=== PATIENT | female | born 1970 | race Caucasian/White ===

== ENCOUNTER 2017-02-25 18:17 | Emergency (ER) | payer MEDICARE, MEDICAID ==
[~2017-02-25] VITALS: Ht 167.6 cm; Wt 89.7 kg
[~2017-02-25 18:17] MED LIST: AMIT50TA PO; BUPR1FIL3 SL; CEFT2FRO2 IV; DICL75TA2 PO; ESTR1TAB15 PO; GABA100C8 PO; GABA300C10 PO; LEVO40CA PO; LEVO75TA5 PO; METO10TA2 PO; METR500T PO; MILN1TAB SL; MILN50TA PO; NAPR500T3 PO; OMEP40CA6 PO; PANT40TA5 PO; POLY17PO5 PO; PROM25TA10 PO; QUET200T PO; QUET400T6 PO; ROSU20TA PO; SENN1TAB5 PO; TAMS0.4C2 PO; ZOLP10TA5 PO
[2017-02-25 18:19] VITALS: BP 144/89
[2017-02-25] MEDS ORDERED: LIDOCAINE 1%, 20ML ONE (19:36)
[2017-02-25] MEDS ORDERED: LIDOCAINE 1%, 20ML SQ ONE (20:00)
[2017-02-25] MEDS ORDERED: BACITRACIN ZINC OINT 500U/GM, 0.9 GM ONE (21:12)
== END 2017-02-25 21:25 | disposition home or self-care (01) ==
LOC: ED 21:19
DX: L60.0 Ingrowing nail (principal); E11.9 Type 2 diabetes mellitus without complications; E78.00 Pure hypercholesterolemia, unspecified; F19.10 Other psychoactive substance abuse, uncomplicated
CPT/HCPCS: 11750

== ENCOUNTER 2017-04-14 15:53 | Emergency (ER) | payer MEDICARE, MEDICAID ==
[~2017-04-14] VITALS: Ht 167.6 cm; Wt 88.6 kg
[2017-04-14] MEDS ORDERED: SODIUM CHLORIDE 0.9% 1,000 ML IV ONE (16:33)
[2017-04-14] MEDS ORDERED: SODIUM CHLORIDE 0.9% 1,000ML IVBOLUS ONE (17:00)
[2017-04-14 17:06] LABS: BLOOD UREA NITROGEN 7 mg/dL (7-18)
[2017-04-14 17:09] LABS: ASPARTATE AMINO TRANSFERASE 79 U/L (15-37)
[2017-04-14 19:28] VITALS: BP 133/81
== END 2017-04-14 19:31 | disposition home or self-care (01) ==
LOC: ED 19:00
DX: L03.032 Cellulitis of left toe (principal); R10.9 Unspecified abdominal pain; E11.9 Type 2 diabetes mellitus without complications; E78.00 Pure hypercholesterolemia, unspecified; Z90.49 Acquired absence of other specified parts of digestive tract; Z90.710 Acquired absence of both cervix and uterus
CPT/HCPCS: 36415; 74022; 80053; 81003; 83690; 85025; 99285

== ENCOUNTER 2017-06-06 18:53 | Emergency (ER) | payer MEDICARE, MEDICAID ==
[~2017-06-06] VITALS: Ht 167.6 cm; Wt 90.9 kg
[~2017-06-06 18:53] MED LIST changes: +GABA-826 PO; -GABA100C8 PO
[2017-06-06] MEDS ORDERED: SODIUM CHLORIDE 0.9% 1,000 ML IV ONE (19:15)
[2017-06-06] MEDS ORDERED: ONDANSETRON 2MG/ML, 2ML IVPush ONE (19:30)
[2017-06-06] MEDS ORDERED: SODIUM CHLORIDE FLUSH 10ML SYR IVF ONE (19:30)
[2017-06-06] MEDS ORDERED: HYDROmorphone 1 MG/ML, 1ML IVPush PRN (19:30)
[2017-06-06 19:49] LABS: BLOOD UREA NITROGEN 7 mg/dL (7-18)
[2017-06-06] MEDS ORDERED: HYDROmorphone 1 MG/ML, 1ML ONE (19:49)
[2017-06-06] MEDS ORDERED: ONDANSETRON 2MG/ML, 2ML ONE (19:49)
[2017-06-06 19:52] LABS: ASPARTATE AMINO TRANSFERASE 99 U/L (15-37)
[2017-06-06] MEDS ORDERED: VARE1TAB21 PO (20:22)
[2017-06-06 21:28] VITALS: BP 117/65
[2017-06-07] MEDS ORDERED: OMNIPAQUE 350 MG/ML, 100ML BOTTLE ONE (05:05)
== END 2017-06-06 21:26 | disposition home or self-care (01) ==
LOC: ED 21:00
DX: R10.32 Left lower quadrant pain (principal); Z90.49 Acquired absence of other specified parts of digestive tract; Z90.710 Acquired absence of both cervix and uterus; Z87.891 Personal history of nicotine dependence
CPT/HCPCS: 36415; 74177; 80053; 81003; 85025; 96361; 96374; 96375; 99285; J1170; J2405; J7030; Q9967

== ENCOUNTER 2017-07-29 06:53 | Emergency (ER) | payer MEDICARE, MEDICAID ==
[~2017-07-29] VITALS: Ht 167.6 cm; Wt 87.0 kg
[~2017-07-29 06:53] MED LIST changes: +SENN-52 PO; -SENN1TAB5 PO; +VARE1TAB21 PO
[2017-07-29 06:55] VITALS: BP 136/85
[2017-07-29] MEDS ORDERED: ONDANSETRON ODT 4 MG ONE (07:28)
[2017-07-29] MEDS ORDERED: HYDROmorphone 1 MG/ML, 1ML ONE (07:28)
[2017-07-29] MEDS ORDERED: HYDROmorphone 1 MG/ML, 1ML IM ONE (07:30)
[2017-07-29] MEDS ORDERED: ONDANSETRON ODT 4 MG PO ONE (07:30)
[2017-07-29] MEDS ORDERED: GABA600T2 PO (07:32)
[2017-07-29] MEDS ORDERED: METO25TA35 PO (07:32)
== END 2017-07-29 08:56 | disposition home or self-care (01) ==
LOC: ED 08:30
DX: M54.41 Lumbago with sciatica, right side (principal); I10 Essential (primary) hypertension; E11.9 Type 2 diabetes mellitus without complications; E78.00 Pure hypercholesterolemia, unspecified; Z90.49 Acquired absence of other specified parts of digestive tract; Z90.710 Acquired absence of both cervix and uterus; Z87.891 Personal history of nicotine dependence
CPT/HCPCS: 81003; 96372; 99283; J1170; Q0162

== ENCOUNTER 2017-09-12 21:34 | Emergency (ER) | payer MEDICARE, MEDICAID ==
[~2017-09-12] VITALS: Ht 167.6 cm; Wt 87.6 kg
[~2017-09-12 21:34] MED LIST changes: +GABA600T2 PO; +METO25TA35 PO
[2017-09-12 21:36] VITALS: BP 158/103
[2017-09-12] MEDS ORDERED: HYDROmorphone 1 MG/ML, 1ML ONE (22:25)
[2017-09-12] MEDS ORDERED: HYDROmorphone 1 MG/ML, 1ML IM ONE (22:30)
[2017-09-12] MEDS ORDERED: CLINDAMYCIN 150 MG/ML, 6ML IM ONE (22:30)
== END 2017-09-12 23:10 | disposition home or self-care (01) ==
LOC: ED 22:27
DX: K04.7 Periapical abscess without sinus (principal); I10 Essential (primary) hypertension; E78.00 Pure hypercholesterolemia, unspecified; E11.43 Type 2 diabetes mellitus with diabetic autonomic (poly)neuropathy; F41.1 Generalized anxiety disorder; Z88.5 Allergy status to narcotic agent; Z88.6 Allergy status to analgesic agent; Z88.0 Allergy status to penicillin
CPT/HCPCS: 96372; 99284; J1170

== ENCOUNTER → 2017-10-26 | Outpatient (CLI) | payer OTHER, MEDICAID ==
[~2017-10-26] MED LIST changes: -NAPR500T3 PO; +NAPR500T4 PO
== END | disposition home or self-care (01) ==
LOC: RAD 13:06
PROVIDERS: ATTEND Physician Assistant Medical
DX: K31.84 Gastroparesis (principal); F41.9 Anxiety disorder, unspecified; R13.19 Other dysphagia; M79.7 Fibromyalgia; K21.9 Gastro-esophageal reflux disease without esophagitis; R13.12 Dysphagia, oropharyngeal phase; R11.0 Nausea; K59.00 Constipation, unspecified; R10.32 Left lower quadrant pain; R10.31 Right lower quadrant pain; R14.0 Abdominal distension (gaseous); R12 Heartburn
CPT/HCPCS: 74220

== ENCOUNTER 2018-09-20 17:00 | Emergency (ER) | payer OTHER, MEDICAID ==
[~2018-09-20] VITALS: Ht 167.6 cm; Wt 86.0 kg
[~2018-09-20 17:00] MED LIST changes: +NAPR-685 PO; -NAPR500T4 PO
[2018-09-20 17:31] LABS: BASOPHILS # (AUTO) 0.06 x10^3/uL (0-0.1); BASOPHILS % (AUTO) 1 % (0-1); EOSINOPHILS # (AUTO) 0.35 x10^3/uL (0-0.4); EOSINOPHILS % (AUTO) 4 % (1-7); LYMPHOCYTES # (AUTO) 2.83 x10^3/uL (1-3.4); LYMPHOCYTES % (AUTO) 30 % (22-44); MD NO; MEAN CORPUSCULAR HEMOGLOBIN 32.3 pg (27.0-34.8); MEAN CORPUSCULAR VOLUME 95.2 fL (80-100); MEAN PLATELET VOLUME 7.5 fL (7.4-10.4); MONOCYTES % (AUTO) 6 % (2-9); NEUTROPHILS # (AUTO) 5.58 x10^3/uL (1.8-6.8); NEUTROPHILS % (AUTO) 59 % (42-75); PLATELET COUNT 389 x10^3/uL (130-400); RED BLOOD COUNT 4.79 x10^6/uL (3.82-5.3); RED CELL DISTRIBUTION WIDTH 14.1 % (9.6-15.2)
[2018-09-20 17:43] LABS: ALANINE AMINOTRANSFERASE 35 U/L (12-78); ANION GAP 9 mmol/L (5-15); CALCIUM 8.7 mg/dL (8.5-10.1); CHLORIDE 106 mmol/L (98-107); CREATININE 0.89 mg/dL (0.55-1.02)
[2018-09-20 17:48] LABS: ALKALINE PHOSPHATASE 69 U/L (45-117); BILIRUBIN,TOTAL 0.4 mg/dL (0.2-1.0); TOTAL PROTEIN 8.2 g/dL (6.4-8.2); TROPONIN I < 0.015 ng/mL (0.000-0.045)
[2018-09-20] MEDS ORDERED: ONDANSETRON ODT 4 MG ONE (18:22)
[2018-09-20] MEDS ORDERED: MAALOX/HYOSCYAMINE/LIDOCAINE 45 ML BTL ONE (18:22)
[2018-09-20] MEDS ORDERED: MAALOX/HYOSCYAMINE/LIDOCAINE 45 ML BTL PO ONE (18:30)
[2018-09-20] MEDS ORDERED: ONDANSETRON ODT 4 MG PO ONE (18:30)
[2018-09-20 19:08] VITALS: BP 112/82
== END 2018-09-20 19:10 | disposition home or self-care (01) ==
LOC: ED 18:54
DX: R07.9 Chest pain, unspecified (principal); K21.0 Gastro-esophageal reflux disease with esophagitis; I10 Essential (primary) hypertension; E11.9 Type 2 diabetes mellitus without complications; E78.00 Pure hypercholesterolemia, unspecified
CPT/HCPCS: 36415; 71046; 80053; 84484; 85025; 93005; 99285; Q0162

== ENCOUNTER → 2018-11-23 | Outpatient (CLI) | payer OTHER, MEDICAID ==
[~2018-11-23] MED LIST changes: +REGADENOSON 0.4 MG/5 ML SYRINGE ONE
== END | disposition home or self-care (01) ==
LOC: CFH 07:59
PROVIDERS: ATTEND Internal Medicine Cardiovascular Disease
DX: Z01.810 Encounter for preprocedural cardiovascular examination (principal); R07.9 Chest pain, unspecified
CPT/HCPCS: 78452; 93017; 93306; A9502; J2785

== ENCOUNTER 2019-04-22 17:51 | Emergency (ER) | payer MEDICARE, MEDICAID ==
[~2019-04-22] VITALS: Ht 167.6 cm; Wt 65.4 kg
[~2019-04-22 17:51] MED LIST changes: -DICL75TA2 PO; +DICL75TA3 PO; -GABA600T2 PO; +GABA600T7 PO; -QUET400T6 PO; +QUET400T7 PO; -REGADENOSON 0.4 MG/5 ML SYRINGE ONE; -ROSU20TA PO; +ROSU20TA2 PO
--- NOTE | 2019-04-22 18:25 | NUR ---
DR VELAZQUEZ AT BEDSIDE, PT ASSESSMENT REVIEWED INCLUDING NEURO EXAM, POC DISUSSED WITH PT AND QUESTIONS ANSWERED. PT OOB AMBULATED TO BATHROOM, UPRIGHT STEADY GAIT, INSTRUCTED ON COLLECTION OF CLEAN CATCH URINE.
[2019-04-22] MEDS ORDERED: CELE50CA PO (18:45)
[2019-04-22] MEDS ORDERED: ONDA4TAB13 SL (18:45)
[2019-04-22] MEDS ORDERED: [UNRECOGNIZED DRUG - OTHER] PO (18:45)
[2019-04-22] MEDS ORDERED: METO10TA2 PO (18:45)
[2019-04-22] MEDS ORDERED: LISI-170 PO (18:45)
[2019-04-22] MEDS ORDERED: PRAV20TA2 PO (18:45)
[2019-04-22] MEDS ORDERED: ESTR2TAB PO (18:45)
[2019-04-22] MEDS ORDERED: LEVO100T5 PO (18:45)
[2019-04-22] MEDS ORDERED: NORT10CA PO (18:45)
[2019-04-22 18:52] LABS: BASOPHILS # (AUTO) 0.08 x10^3/uL (0-0.1); BASOPHILS % (AUTO) 1 % (0-1); EOSINOPHILS # (AUTO) 0.25 x10^3/uL (0-0.4); EOSINOPHILS % (AUTO) 3 % (1-7); LYMPHOCYTES # (AUTO) 3.42 x10^3/uL (1-3.4); LYMPHOCYTES % (AUTO) 37 % (22-44); MD NO; MEAN CORPUSCULAR HEMOGLOBIN 31.5 pg (27.0-34.8); MEAN CORPUSCULAR HGB CONC 32.6 g/dL (32.4-35.8); MEAN CORPUSCULAR VOLUME 96.7 fL (80-100); MEAN PLATELET VOLUME 8.3 fL (7.4-10.4); MONOCYTES # (AUTO) 0.71 x10^3/uL (0.2-0.8); MONOCYTES % (AUTO) 8 % (2-9); NEUTROPHILS # (AUTO) 4.72 x10^3/uL (1.8-6.8); NEUTROPHILS % (AUTO) 51 % (42-75); PLATELET COUNT 359 x10^3/uL (130-400); RED BLOOD COUNT 4.78 x10^6/uL (3.82-5.3); RED CELL DISTRIBUTION WIDTH 13.6 % (9.6-15.2)
[2019-04-22 18:55] LABS: AMPHETAMINE SCREEN, URINE Negative (Negative); BARBITURATE SCREEN, URINE Negative (Negative); BENZODIAZEPINE SCREEN, URINE Positive (Negative); CANNABINOID SCREEN, URINE Negative (Negative); COCAINE SCREEN, URINE Negative (Negative); METHADONE SCREEN, URINE Negative (Negative); OPIATE SCREEN, URINE Negative (Negative)
[2019-04-22 18:59] LABS: ALANINE AMINOTRANSFERASE 21 U/L (12-78); ALBUMIN 3.9 g/dL (3.4-5.0); ANION GAP 7 mmol/L (5-15); CALCIUM 9.1 mg/dL (8.5-10.1); CHLORIDE 108 mmol/L (98-107); CREATININE 0.63 mg/dL (0.55-1.02)
[2019-04-22 19:02] LABS: ALKALINE PHOSPHATASE 63 U/L (45-117); BILIRUBIN,TOTAL 0.5 mg/dL (0.2-1.0)
[2019-04-22] MEDS ORDERED: ACETAMINOPHEN 325 MG TABLET ONE (19:45)
[2019-04-22 19:48] VITALS: BP 117/75
--- NOTE | 2019-04-22 19:49 | NUR ---
PT RESTING ON GURNEY, MEDICATED FOR H/A SEE MAR, MONITORS IN PLACE, CALL LIGHT WITHIN REACH. CHART UP FOR RECHECK
[2019-04-22] MEDS ORDERED: ACETAMINOPHEN 325 MG TABLET PO ONE (20:00)
== END 2019-04-22 20:37 | disposition home or self-care (01) ==
LOC: ED 20:12
DX: R41.82 Altered mental status, unspecified (principal); R42 Dizziness and giddiness; H53.8 Other visual disturbances; I10 Essential (primary) hypertension; E11.9 Type 2 diabetes mellitus without complications; E07.9 Disorder of thyroid, unspecified; E78.00 Pure hypercholesterolemia, unspecified; F17.290 Nicotine dependence, other tobacco product, uncomplicated; Z72.9 Problem related to lifestyle, unspecified; Z90.89 Acquired absence of other organs; Z90.710 Acquired absence of both cervix and uterus; Z90.49 Acquired absence of other specified parts of digestive tract
CPT/HCPCS: 36415; 71045; 80053; 80307; 82140; 83690; 85025; 93005; 99284

== ENCOUNTER 2019-10-23 14:16 | Emergency (ER) | payer MEDICAID, MEDICARE ==
[~2019-10-23] VITALS: Ht 167.6 cm; Wt 57.0 kg
[~2019-10-23 14:16] MED LIST changes: +CELE50CA PO; +ESTR2TAB PO; +LEVO100T5 PO; +LISI-170 PO; +NORT10CA PO; +OMEP40CA42 PO; -OMEP40CA6 PO; +ONDA4TAB13 SL; +PRAV20TA2 PO; +[UNRECOGNIZED DRUG - OTHER] PO
--- NOTE | 2019-10-23 14:20 | NUR ---
NA X 1 PER FRIEND "SHE IS IN THE BATHROOM."
[2019-10-23] MEDS ORDERED: MECLIZINE CHEWABLE 25 MG TAB ONE (14:51)
[2019-10-23] MEDS ORDERED: METOCLOPRAMIDE 5 MG/ML, 2ML ONE (14:51)
[2019-10-23] MEDS ORDERED: METOCLOPRAMIDE 5 MG/ML, 2ML IVPush ONE (15:00)
[2019-10-23] MEDS ORDERED: MECLIZINE CHEWABLE 25 MG TAB PO ONE (15:00)
[2019-10-23] MEDS ORDERED: SODIUM CHLORIDE FLUSH 10ML SYR IVF ONE (15:00)
[2019-10-23] MEDS ORDERED: SODIUM CHLORIDE 0.9% 1,000ML IVBOLUS ONE (15:00)
--- NOTE | 2019-10-23 15:00 | NUR ---
FIRST CONTACT WITH PT. PT STATES "I HAVE A MIGRAINE THAT NEVER GOES AWAY. TODAY I CAN TELL MY MIGRAINE IS GETTING TO THE POINT WHERE I CAN'T GET IT UNDER CONTROL." ALL MONITORS IN PLACE. CALL LIGHT WITHIN REACH. PA AT BEDSIDE TO EVALUATE AT THIS TIME. PT'S AOX4. RESPS EVEN AND UNLABORED.
--- NOTE | 2019-10-23 15:09 | NUR ---
PIV EST BY THIS RN AND PT MEDICATED PER EMAR. NS INFUSING AT THIS TIME.
--- NOTE | 2019-10-23 15:45 | NUR ---
pt resting in [facility]. pt's aox4. resps even and unlabored.
[2019-10-23] MEDS ORDERED: KETOROLAC 30 MG/1 ML ONE (16:08)
--- NOTE | 2019-10-23 16:12 | NUR ---
pt medicated per emar for pain. pa confirmed her allergy and pa ok'd to give toradol. pt tolerated well. pt's aox4. resps even and unlabored.
[2019-10-23] MEDS ORDERED: KETOROLAC 30 MG/1 ML IVPush ONE (16:30)
--- NOTE | 2019-10-23 16:30 | NUR ---
pt amb to br with steady gait.
[2019-10-23] MEDS ORDERED: DEXAMETHASONE 4 MG/ML, 1ML ONE (16:51)
[2019-10-23] MEDS ORDERED: LORazepam 2 MG/ML, 1ML ONE (16:51)
[2019-10-23 16:57] VITALS: BP 147/91
--- NOTE | 2019-10-23 16:57 | NUR ---
pt medicated per emar. pt tolerated well.
[2019-10-23] MEDS ORDERED: LORazepam 2 MG/ML, 1ML IVPush ONE (17:00)
[2019-10-23] MEDS ORDERED: DEXAMETHASONE 4 MG/ML, 1ML IVPush ONE (17:00)
--- NOTE | 2019-10-23 17:30 | NUR ---
pt to mri at this time.
--- NOTE | 2019-10-23 17:30 | NUR ---
pt medicated per emar before mri. pt tolerated well.
--- NOTE | 2019-10-23 18:04 | NUR ---
PT BACK TO ROOM FROM MRI AT THIS TIME.
--- NOTE | 2019-10-23 18:44 | NUR ---
Patient given discharge instructions and they have confirmed that they understand the instructions. Patient ambulatory with steady gait.
== END 2019-10-23 18:44 | disposition home or self-care (01) ==
LOC: ED 17:39
DX: G43.C0 Periodic headache syndromes in child or adult, not intractable (principal); R42 Dizziness and giddiness; E78.00 Pure hypercholesterolemia, unspecified; E11.9 Type 2 diabetes mellitus without complications; Z90.89 Acquired absence of other organs; Z90.49 Acquired absence of other specified parts of digestive tract
CPT/HCPCS: 70551; 93005; 96361; 96374; 96375; 99284; J1100; J1885; J2060; J2765; J7030

== ENCOUNTER → 2020-08-28 | Outpatient (CLI) | payer MEDICARE, MEDICAID ==
[~2020-08-28] MED LIST changes: -PANT40TA5 PO; +PANT40TA6 PO
== END | disposition home or self-care (01) ==
LOC: CFH 13:25
PROVIDERS: ATTEND Genetic Counselor, MS
DX: N63.10 Unspecified lump in the right breast, unspecified quadrant (principal); R63.4 Abnormal weight loss
CPT/HCPCS: 76642; 77066; G0279